=== PATIENT | female | born 1990 | race Caucasian/White ===

== ENCOUNTER 2016-11-24 10:29 | Inpatient (IN) | payer BC ==
[2016-11-24] MEDS ORDERED: OXYTOCIN/DEXTROSE 5%-WATER 30 UNITS/500 ML BAG IV ONE (12:29)
[2016-11-24] MEDS ORDERED: LIDOCAINE HCL 50 ML VIAL PERI PRN (12:29)
[2016-11-24] MEDS ORDERED: MISOPROSTOL 100 MCG TABLET VG PRN (12:29)
[2016-11-24] MEDS: RINGERS SOLUTION,LACTATED 1,000 ML IV PRN ×2 (12:35→21:11)
[2016-11-24 12:52] LABS: Hematocrit 38.7 % (37.0-47.0); Hemoglobin 13.1 gm/dL (12.5-16.0); Mean Cell Volume 88.6 fl (78-100); Mean Corpuscular Hgb Conc 33.9 g/dl (32-36); Mean Platelet Volume 12.7 fl (6.0-9.5); Neutrophil # 12.8 K/mm3 (1.3-6.0); Neutrophil % 79.8 % (42-75.0); Platelet Count 171 K/mm3 (150-450); Red Blood Count 4.37 M/mm3 (4.2-5.4); Red Cell Distribution Width 13.2 % (11.5-14.0)
[2016-11-24 13:06] LABS: Albumin * 2.4 gm/dl (3.4-5.0); Anion Gap 13.9 mmol/L (6.8-13.8); BUN/Creatinine Ratio 19.2 (9.0-21.6); Bilirubin, Total 0.2 mg/dL (0.0-1.1); Ca. Corrected For Albumin 9.9 mg/dL (8.4-10.2); Calcium * 8.9 mg/dL (7.9-10.9); Carbon Dioxide 23.1 mmol/L (24-32.6); Total Protein 6.4 gm/dL (6.2-8.2)
[2016-11-24 13:19] LABS: Cocaine Ur Negative (NEGATIVE); Urine Barbiturate Negative (NEGATIVE); Urine Benzodiazepines Negative (NEGATIVE); Urine Opiates Negative (NEGATIVE); Urine PCP Negative (NEGATIVE); Urine THC Negative (NEGATIVE)
--- NOTE | 2016-11-24 17:21 | PN ---
Subjective - Date and Time Seen Date: 11/24/16 Subjective Narrative: Labor note 26 yo, G1 at 40 weeks with gestational hypertension. induced for non-reactive NST, with BPP 4/8. cervix dilated to 1 cm at admission. GBS negative. pitocin started for induction and now at 6 mu/min. Contractions: q2-3 min. VE: 1.5 cm, 60%, -2 FHR: reassuring, baseline 130s with accels and no decels. Plan: continue pitocin as tolerated. Madeleine Jacques MD Objective - Vitals Vitals: Last Vital Signs Temp 36.1 C L 10/07/15 10:31 Pulse Resp BP 138/87 10/07/15 10:31 Pulse Ox - Abnormal Lab Findings Abnormal Lab Findings: Abnormal Lab Results 11/24/16 11/24/16 Range/Units 12:45 12:45 WBC 16.0 H (4.0-10.5) K/mm3 MPV 12.7 H (6.0-9.5) fl Immature Gran % (Auto) 1.30 H (0.001-0.429) % Immature Gran # (Auto) 0.21 H (0.000-0.0310) K/mm3 Neutrophils % 79.8 H (42-75.0) % Lymphocytes % 13.8 L (20-51) % Neutrophils # 12.8 H (1.3-6.0) K/mm3 Carbon Dioxide 23.1 L (24-32.6) mmol/L Anion Gap 13.9 H (6.8-13.8) mmol/L Est GFR (Non-Af Amer) 153 H (60-130) mL/min Albumin 2.4 L (3.4-5.0) gm/dl
[2016-11-24] MEDS ORDERED: RINGERS SOLUTION,LACTATED 1,000 ML IV ONE (18:04)
[2016-11-24] MEDS ORDERED: fentaNYL CITRATE/PF 50 MCG/ML AMPUL IT SCH (18:45)
--- NOTE | 2016-11-24 18:46 | OR ---
Anesthesia Pre Procedure Eval Date of Service: 11/24/16 Pre Procedure Evaluation: Last Vital Signs Temp 37.3 1840 Pulse 65 1840 Resp 18 1840 BP 174/93 1840 Pulse Ox 98 1840 Anesthesia Pre Procedure Evaluation DATE: 11/24/2015 TIME: 1840 INDICATIONS: Active labor, labor pain PAST MEDICAL HISTORY: Primipara patient in active labor, being induced due to biophysical profile of 4 over. EXAM: Heart regular; lungs clear ASSESSMENT OF MEDICAL STATUS: Hypertensive and nausea and now probably due to increasing pain. Appropriate candidate for labor analgesia. PLANNED PROCEDURE: Labor epidural for labor analgesia Home Medications: HOME MEDICATIONS Vit#96/Ferrous Fum/FA [ S] 1 tab PO DAILY 11/24/16 [Last Taken 11/23/16]
--- NOTE | 2016-11-24 19:09 | OR ---
Anesthesia Procedure Note - Anesthesia Procedure Note Date of Service: 11/24/16 Narrative: Vital Signs - Last Taken Temp 36.1 C L 10/07/15 10:31 Pulse Resp BP 138/87 10/07/15 10:31 Pulse Ox 11/24/16 19:07 ANESTHESIA PROCEDURE NOTE Date of Procedure: 11/24/2016 Time of procedure: 1840. Performed by: MARKIE Ruiz CRNA, MSN Refrigeration Engine Operator: Roshni Villasenor RN. Preprocedure diagnosis: Active labor, labor pain. Post procedure diagnosis: Same. Procedure: Labor Epidural Placement L34. Indications: Labor pain. Findings: See below. Details of the procedure: The patient was placed on the side of the bed in sitting position. The patient was prepped with DuraPrep and draped in a sterile fashion. Lidocaine 1% was infiltrated to the skin and subcutaneous tissues at the level of the L3 4 interspace. The epidural space was identified using a 18-gauge Tuohy needle with [id number] technique. Fentanyl 20 g was given intrathecally the intrathecal needle was then removed and the epidural catheter was threaded approximately 4 cm, the epidural needle was then removed, and after careful aspiration 3 mL of 1.5% lidocaine with 1-200,000 epinephrine was injected without change in maternal heart rate or sensorium. The catheter was then taped in place. EBL: Minimal. Fluids: N/A. Specimen: N/A. Post procedure condition: The patient tolerated the procedure well with good relief. No complications were noted. Thank you for this consultation. Jerson Hernandez CRNA, ARNP, MSN
[2016-11-24] MEDS: BUPIVACAINE HCL/0.9 % NACL/PF 250 ML EP PRN (19:26)
[2016-11-25] MEDS: RINGERS SOLUTION,LACTATED 1,000 ML IV PRN (03:53)
[2016-11-25] MEDS ORDERED: DEXTROSE 5%-LACTATED RINGERS 1,000 ML IV PRN (07:00)
[2016-11-25] MEDS: BUPIVACAINE HCL/0.9 % NACL/PF 250 ML EP PRN (08:40)
--- NOTE | 2016-11-25 08:51 | PN ---
Subjective - Date and Time Seen Date: 11/25/16 Subjective Narrative: Labor note 26 yo, G1 at 40 weeks with gestational hypertension. induced for non-reactive NST, with BPP 4/8. cervix dilated to 1 cm at admission. GBS negative. pitocin started for induction and on pitocin all night. Contractions: q2-3 min. SROM at 0257 with moderate meconium. Patient got a pitocin break from 7 am to 8 am. pitocin restarted at 8:05, and now at 4 mu. Cervix: 5/80/-2 at 02:57 6/90/-1 at 07:00 7/100/-1 at 8:30 FHR: reassuring, 120s with accels. Plan: will continue pitocin as tolerated. Madeleine Jacques MD Objective - Vitals Vitals: Last Vital Signs Temp 36.1 C L 11/24/16 19:18 Pulse 83 11/24/16 19:18 Resp 18 11/24/16 19:18 BP 138/78 11/24/16 19:18 Pulse Ox 98 11/24/16 19:18 - Abnormal Lab Findings Abnormal Lab Findings: Abnormal Lab Results 11/24/16 11/24/16 Range/Units 12:45 12:45 WBC 16.0 H (4.0-10.5) K/mm3 MPV 12.7 H (6.0-9.5) fl Immature Gran % (Auto) 1.30 H (0.001-0.429) % Immature Gran # (Auto) 0.21 H (0.000-0.0310) K/mm3 Neutrophils % 79.8 H (42-75.0) % Lymphocytes % 13.8 L (20-51) % Neutrophils # 12.8 H (1.3-6.0) K/mm3 Carbon Dioxide 23.1 L (24-32.6) mmol/L Anion Gap 13.9 H (6.8-13.8) mmol/L Est GFR (Non-Af Amer) 153 H (60-130) mL/min Albumin 2.4 L (3.4-5.0) gm/dl Cauti Physician Documentation - Urinary Catheter Management Urethral (Rivera) Date of Insertion: 11/24/16 Time of Insertion: 20:00
[2016-11-25] MEDS ORDERED: FLU VACC QS2016-17 36MOS UP/PF 60 MCG/0.5 ML DISP.SYRIN IM ONE ×2 (09:00→13:15)
[2016-11-25] MEDS ORDERED: MISOPROSTOL 200 MCG TABLET RC SCH (11:45)
[2016-11-25] MEDS ORDERED: GLYCERIN/WITCH HAZEL LEAF 40 APPL BOX TP PRN (12:25)
[2016-11-25] MEDS ORDERED: RINGERS SOLUTION,LACTATED 1,000 ML IV PRN (12:25)
[2016-11-25] MEDS ORDERED: diphenhydrAMINE HCL 25 MG CAPSULE PO PRN (12:25)
[2016-11-25] MEDS ORDERED: SENNOSIDES 8.6 MG TABLET PO PRN (12:25)
[2016-11-25] MEDS ORDERED: HYDROCORTISONE 30 APPL TUBE TP PRN (12:25)
[2016-11-25] MEDS ORDERED: BENZOCAINE/MENTHOL 81 SPRAY CAN TP PRN (12:25)
[2016-11-25] MEDS ORDERED: OXYTOCIN/DEXTROSE 5%-WATER 30 UNITS/500 ML BAG IV ONE (12:25)
[2016-11-25] MEDS ORDERED: BISACODYL 10 MG SUPP.RECT RC PRN (12:25)
--- NOTE | 2016-11-25 12:34 | OR ---
Operative Report - Dictated Report Narrative: Spontaneous Vaginal Delivery Note: 26 yo, G1 admitted for induction at 40 weeks due to gestational hypertension and non-reassuring testing with non-reactive NST and BPP of 4/8. Cervix was dilated to 1 cm at admission. GBS was negative. Pitocin started for induction with the aid of a Rivera bulb. Received epidural in labor. SROM at 0257 with moderate meconium and cervix was 5 cm at that time. IUPC placed at 7 cm. Continued on low dose pitocin at 2-4 mu/min with reassuring heart rate. Progressed to complete without complications. Pushed with contractions and descent. Head delivered in OA over the perineum. Nuchal cord x 1 was tight and unable to reduce and delivered through. The anterior shoulder delivered, followed by the posterior shoulder and the rest of the baby without difficulty. Mouth and nose were bulb-suctioned. Cord was clamped, and cut by father of baby. Baby cried while on maternal abdomen for care by the nursing. Cord blood was obtained. Placenta delivered intact with 3 vessel cord. Pitocin drip started after placenta delivered. Fundus was soft and cytotec 800 mcg was placed in rectum. Exam of the perineum, vaginal and cervix revealed a tiny perineum abrasion and no repair needed. Fundus was massaged and firm with minimal bleeding. Mother and baby tolerated the delivery well. EBL 500 ml. Infant: female, 3312 grams, 7 lbs and 4.8 oz. 8/9. Time of delivery: 11: 25. Madeleine Jacques MD History for Definition: * The number of deliveries resulting in a live the patient experienced prior to current hospitalization * The previous delivery of live twins or any live multiple gestation is considered one live event. *If primagravida or nulliparous is documented select zero for the number of previous live births. Live Events: 0
[2016-11-25] MEDS: IBUPROFEN 800 MG TABLET PO PRN (13:35)
[2016-11-25] MEDS: HYDROcodone/ACETAMINOPHEN 1 EACH TABLET PO PRN ×2 (13:37→18:17)
[2016-11-25] MEDS: DOCUSATE SODIUM 100 MG CAPSULE PO SCH (20:37)
[2016-11-26] MEDS: HYDROcodone/ACETAMINOPHEN 1 EACH TABLET PO PRN ×2 (05:16→16:28)
[2016-11-26] MEDS: IBUPROFEN 800 MG TABLET PO PRN ×2 (05:16→16:28)
[2016-11-26 06:45] LABS: Hematocrit 32.9 % (37.0-47.0); Mean Cell Volume 88.9 fl (78-100); Mean Corpuscular Hemoglobin 29.7 pg (27-31); Mean Corpuscular Hgb Conc 33.4 g/dl (32-36); Mean Platelet Volume 12.7 fl (6.0-9.5); Neutrophil # 14.5 K/mm3 (1.3-6.0); Platelet Count 161 K/mm3 (150-450); Red Cell Distribution Width 13.2 % (11.5-14.0); White Blood Count 17.7 K/mm3 (4.0-10.5)
[2016-11-26] MEDS: DOCUSATE SODIUM 100 MG CAPSULE PO SCH ×2 (08:11→20:42)
--- NOTE | 2016-11-26 09:54 | PN ---
Subjective - Date and Time Seen Date: 11/26/16 Subjective Narrative: day 1, s/p doing well. no complaints. . normal lochia. Objective - Vitals Vitals: Last Vital Signs Temp 36.2 C L 11/26/16 08:00 Pulse 68 11/26/16 08:00 Resp 18 11/26/16 08:00 BP 124/67 11/26/16 08:00 Pulse Ox 98 11/26/16 08:00 - Abnormal Lab Findings Abnormal Lab Findings: Abnormal Lab Results 11/26/16 Range/Units 06:40 WBC 17.7 H (4.0-10.5) K/mm3 RBC 3.70 L (4.2-5.4) M/mm3 Hgb 11.0 L (12.5-16.0) gm/dL Hct 32.9 L (37.0-47.0) % MPV 12.7 H (6.0-9.5) fl Immature Gran % (Auto) 0.80 H (0.001-0.429) % Immature Gran # (Auto) 0.15 H (0.000-0.0310) K/mm3 Neutrophils % 82.0 H (42-75.0) % Lymphocytes % 11.2 L (20-51) % Neutrophils # 14.5 H (1.3-6.0) K/mm3 - Exam Constitutional: Present: Alert, Oriented x3, Cooperative Respiratory: Present: no respiratory distress Cardiovascular/Chest: Present: normal peripheral pulses Abdomen: Present: soft, nontender, nondistended, other - fundus firm at umbilicus Extremity: Present: normal range of motion, no calf tenderness, pedal edema - trace Skin Exam: Present: normal color, warm/dry, no cyanosis Eye contact: Present: cooperative, good eye contact, normal speech Cauti Physician Documentation - Urinary Catheter Management Urethral (Rivera) Date of Insertion: 11/24/16 Time of Insertion: 20:00 Date of Removal: 11/25/16 Time of Removal: 11:10 Assessment/Plan Plan Narrative: A: day 1, s/p stable. Plan: routine care. ambulation encouraged. Madeleine Jacques MD
[2016-11-27] MEDS: IBUPROFEN 800 MG TABLET PO PRN ×2 (06:12→12:32)
[2016-11-27] MEDS: HYDROcodone/ACETAMINOPHEN 1 EACH TABLET PO PRN ×2 (06:12→12:32)
[2016-11-27 06:44] VITALS: BP 131/85
--- NOTE | 2016-11-27 16:31 | PN ---
Subjective - Date and Time Seen Date: 11/27/16 Subjective Narrative: day 2, s/p doing well. . normal lochia. Objective - Vitals Vitals: Last Vital Signs Temp 37.0 C 11/27/16 06:36 Pulse 77 11/27/16 06:36 Resp 18 11/27/16 06:36 BP 131/85 11/27/16 06:36 Pulse Ox 98 11/27/16 06:36 - Exam Constitutional: Present: Alert, Oriented x3, Cooperative Respiratory: Present: no respiratory distress Cardiovascular/Chest: Present: normal peripheral pulses Abdomen: Present: soft, nontender, nondistended, other - fundus firm Extremity: Present: normal range of motion, no pedal edema, no calf tenderness Eye contact: Present: cooperative, good eye contact, normal speech Cauti Physician Documentation - Urinary Catheter Management Urethral (Rivera) Date of Insertion: 11/24/16 Time of Insertion: 20:00 Date of Removal: 11/25/16 Time of Removal: 11:10 Assessment/Plan Plan Narrative: A: PPD#2, s/p , doing well and stable. Plan: discharge home today. Madeleine Jacques MD
== END 2016-11-27 14:50 | disposition home or self-care (01) | DRG 775 ==
LOC: RAD 10:29 → OB 12:00
PROVIDERS: ADMIT Obstetrics & Gynecology; ATTEND Obstetrics & Gynecology
PROC: 10E0XZZ Delivery of Products of Conception, External Approach (ICD-10-PCS; principal; 2016-11-25)
PROC: 3E033VJ Introduction of Other Hormone into Peripheral Vein, Percutaneous Approach (ICD-10-PCS; 2016-11-25)
PROC: 4A1HXCZ Monitoring of Products of Conception, Cardiac Rate, External Approach (ICD-10-PCS; 2016-11-25)
PROC: 3E0S3CZ (ICD-10-PCS; 2016-11-25)
DX: O13.4 Gestational [pregnancy-induced] hypertension without significant proteinuria, complicating childbirth (principal); O76 Abnormality in fetal heart rate and rhythm complicating labor and delivery; O69.1XX0 Labor and delivery complicated by cord around neck, with compression, not applicable or unspecified; O77.0 Labor and delivery complicated by meconium in amniotic fluid; Z3A.40 40 weeks gestation of pregnancy; Z37.0 Single live birth

== ENCOUNTER 2018-02-02 09:00 | Inpatient (IN) ==
[2018-02-02 09:25] LABS: Cocaine Ur Negative (NEGATIVE); Urine Barbiturate Negative (NEGATIVE); Urine Benzodiazepines Negative (NEGATIVE); Urine Opiates Negative (NEGATIVE); Urine PCP Negative (NEGATIVE); Urine THC Positive (NEGATIVE)
[2018-02-02] MEDS ORDERED: LIDOCAINE HCL 50 ML VIAL PERI PRN (11:35)
[2018-02-02] MEDS ORDERED: DEXTROSE 5%-LACTATED RINGERS 1,000 ML IV PRN (11:35)
[2018-02-02] MEDS ORDERED: RINGER'S SOLUTION,LACTATED 1,000 ML IV ONE (11:35)
[2018-02-02] MEDS ORDERED: ONDANSETRON HCL/PF 2 MG/ML VIAL IV PRN ×2 (11:35→12:14)
[2018-02-02] MEDS ORDERED: OXYTOCIN/DEXTROSE 5%-WATER 30 UNITS/500 ML BAG IV ONE (12:00)
[2018-02-02 12:01] LABS: Hematocrit 39.3 % (37.0-47.0); Hemoglobin 13.2 gm/dL (12.5-16.0); Mean Cell Volume 88.9 fl (78-100); Mean Corpuscular Hemoglobin 29.9 pg (27-31); Mean Corpuscular Hgb Conc 33.6 g/dl (32-36); Mean Platelet Volume 12.9 fl (6.0-9.5); Neutrophil # 15.3 K/mm3 (1.3-6.0); Neutrophil % 86.5 % (42-75.0); Platelet Count 130 K/mm3 (150-450); Red Blood Count 4.42 M/mm3 (4.2-5.4); Red Cell Distribution Width 13.4 % (11.5-14.0); White Blood Count 17.7 K/mm3 (4.0-10.5)
[2018-02-02 12:14] LABS: Albumin * 2.5 gm/dl (3.4-5.0); Anion Gap 14.7 mmol/L (6.8-13.8); Bilirubin, Total 0.4 mg/dL (0.0-1.1); Ca. Corrected For Albumin 9.4 mg/dL (8.4-10.2); Calcium * 8.5 mg/dL (7.9-10.9); Carbon Dioxide 22.3 mmol/L (24-32.6)
[2018-02-02] MEDS ORDERED: NALOXONE HCL 1 MG/1 ML SYRG IV PRN (12:14)
[2018-02-02] MEDS ORDERED: BUPIVACAINE HCL/PF 30 ML VIAL EP SCH (12:15)
[2018-02-02] MEDS ORDERED: BUPIVACAINE HCL/0.9 % NACL/PF 250 ML EP PRN (12:30)
--- NOTE | 2018-02-02 12:50 | OR ---
Anesthesia Procedure Note - Anesthesia Procedure Note Date of Service: 02/02/18 Narrative: Vital Signs - Last Taken Temp 36.8 C 02/02/18 12:17 Pulse 80 02/02/18 12:17 Resp 20 02/02/18 12:17 BP 141/85 02/02/18 12:17 Pulse Ox 98 02/02/18 12:17 02/02/18 12:49 ANESTHESIA PROCEDURE NOTE Date of Procedure: 02/02/2018. Time of procedure: 1235. Performed by: Wei Paulino CRNA Social Sciences Chair: None. Preprocedure diagnosis: Active labor. Post procedure diagnosis: Same. Procedure: Insertion of labor epidural. Indications: The patient is a 27 -year-old female in active labor requesting labor epidural for pain management. Findings: See below. Details of the procedure: The patient was placed in a sitting position. DuraPrep as well as Betadine swabs X3 was applied to the patient's back. Patient was then draped in a sterile fashion. Lidocaine 1% was infiltrated to the skin and subcutaneous tissues at the level of the L3-4 interspace. The epidural space was identified using a 18-gauge Tuohy needle with loss-of- resistance technique. Epidural catheter was inserted to a depth of 13 centimeters at skin. Negative test dose was elicited using 3 mL of 1.5% preservative-free lidocaine plus epinephrine 1 200,000. The epidural catheter was then taped and secured in place. A loading dose of 8 mL of 0.25% preservative-free bupivacaine was administered to the epidural catheter after negative aspiration for blood and CSF. EBL: Minimal. Fluids: N/A. Specimen: N/A. Post procedure condition: The patient tolerated the procedure well. No complications were noted. Thank you for this consultation. Wei Paulino CRNA
[2018-02-02] MEDS ORDERED: BISACODYL 10 MG SUPP.RECT RC PRN (17:55)
[2018-02-02] MEDS ORDERED: OXYTOCIN/DEXTROSE 5%-WATER 500 UNITS/8,333.33 ML BAG IV ONE (17:55)
[2018-02-02] MEDS ORDERED: SENNOSIDES 8.6 MG TABLET PO PRN (17:55)
[2018-02-02] MEDS ORDERED: diphenhydrAMINE HCL 25 MG CAPSULE PO PRN (17:55)
[2018-02-02] MEDS ORDERED: GLYCERIN/WITCH HAZEL LEAF 40 APPL BOX TP PRN (17:55)
[2018-02-02] MEDS ORDERED: HYDROCORTISONE 30 APPL TUBE TP PRN (17:55)
[2018-02-02] MEDS ORDERED: BENZOCAINE/MENTHOL 81 SPRAY CAN TP PRN (17:55)
--- NOTE | 2018-02-02 17:55 | OR ---
Operative Report - Dictated Report Narrative: Spontaneous Vaginal Delivery Note: 27 yo, CF, at 38.4 weeks, presented today for labor check with regular contractions started 4 am. Dilated to 4 cm in triage. Progressed to 5-6 cm and was admitted for labor at the time. Requested epidural at admission. Progressed to 6 cm upon completion of epidural. Pitocin started for augmentation when progressed to 7 cm with a bulging bag. SROM at 16:35 with light meconium. Progressed to complete without complications. Perineum cleaned with betadine. Pushed with contractions and descent. Head delivered in OA over the perineum. Nuchal cord x 1 reduced at perineum. The anterior shoulder delivered, followed by the posterior shoulder and the rest of the baby without difficulty. Baby cried at perineum. Baby placed on maternal abdomen for drying and care by the nursing. Cord was clamped at one minute of life and cut by the father of baby. Cord blood was obtained. Placenta delivered intact with 3 vessel cord. Pitocin drip started at 20 mu/min after placenta delivered. Exam of the perineum, vaginal and cervix revealed an intact perineum with small right periurethral laceration. No repair needed. Fundus was massaged and firm. Bleeding was moderate. Mother and baby tolerated the delivery well. EBL 200 ml. Infant: male, 3327 grams, 7 lbs and 5.3oz. 9/9. Time of delivery: 17:04. Madeleine Jacques MD History for MU Definition: * The number of deliveries resulting in a live the patient experienced prior to current hospitalization * The previous delivery of live twins or any live multiple gestation is considered one live event. *If primagravida or nulliparous is documented select zero for the number of previous live births. Live Events: 1
[2018-02-02] MEDS: HYDROcodone/ACETAMINOPHEN 1 EACH TABLET PO PRN ×2 (18:47→22:08)
[2018-02-02] MEDS: IBUPROFEN 800 MG TABLET PO PRN (18:47)
[2018-02-02] MEDS: DOCUSATE SODIUM 100 MG CAPSULE PO SCH (22:08)
[2018-02-03] MEDS: IBUPROFEN 800 MG TABLET PO PRN ×4 (01:26→22:53)
[2018-02-03] MEDS: HYDROcodone/ACETAMINOPHEN 1 EACH TABLET PO PRN ×6 (01:26→22:53)
[2018-02-03] MEDS: DOCUSATE SODIUM 100 MG CAPSULE PO SCH ×2 (08:25→22:53)
--- NOTE | 2018-02-03 14:53 | PN ---
Subjective - Date and Time Seen Date: 02/03/18 Subjective Narrative: day 1, s/p doing well with no complaints. . normal lochia. ambulating well. Objective - Vitals Vitals: Last Vital Signs Temp 37.0 C 02/03/18 07:31 Pulse 91 02/03/18 07:31 Resp 18 02/03/18 07:31 BP 122/75 02/03/18 07:31 Pulse Ox 93 02/03/18 07:31 - Exam Constitutional: Present: Alert, Oriented x3, Cooperative Respiratory: Present: no respiratory distress Abdomen: Present: soft, nontender, nondistended, other - fundus firm at umbilicus, non-tender Extremity: Present: normal range of motion, no pedal edema, no calf tenderness Skin Exam: Present: normal color, warm/dry, no cyanosis Appearance: Present: appropriate appearance Eye contact: Present: cooperative, good eye contact, normal speech Cauti Physician Documentation - Urinary Catheter Management Urethral (Rivera) Date of Insertion: 02/02/18 Time of Insertion: 13:00 Date of Removal: 02/02/18 Time of Removal: 17:01 Assessment/Plan Plan Narrative: A: PPD#1, s/p stable and well. Plan: routine care. ambulation encouraged. Madeleine Jacques MD
[2018-02-04] MEDS: HYDROcodone/ACETAMINOPHEN 1 EACH TABLET PO PRN ×3 (02:17→12:31)
[2018-02-04] MEDS: IBUPROFEN 800 MG TABLET PO PRN (07:13)
[2018-02-04] MEDS: DOCUSATE SODIUM 100 MG CAPSULE PO SCH (09:10)
--- NOTE | 2018-02-04 12:42 | PN ---
Subjective - Date and Time Seen Date: 02/04/18 Subjective Narrative: day 2, s/p doing well. . normal lochia. Objective - Vitals Vitals: Last Vital Signs Temp 36.7 C 02/04/18 07:07 Pulse 77 02/04/18 07:07 Resp 20 02/04/18 07:07 BP 126/69 02/04/18 07:07 Pulse Ox 98 02/04/18 07:07 - Exam Constitutional: Present: Alert, Oriented x3, Cooperative Respiratory: Present: no respiratory distress Cardiovascular/Chest: Present: normal peripheral pulses Abdomen: Present: soft, nontender, nondistended, other - fundus below umbilicus and non-tender Extremity: Present: normal range of motion, no pedal edema, no calf tenderness Skin Exam: Present: normal color, warm/dry, no cyanosis Appearance: Present: appropriate appearance Eye contact: Present: cooperative, good eye contact, normal speech Cauti Physician Documentation - Urinary Catheter Management Urethral (Rivera) Date of Insertion: 02/02/18 Time of Insertion: 13:00 Date of Removal: 02/02/18 Time of Removal: 17:01 Assessment/Plan Plan Narrative: A: PPD#2, s/p , stable and well. Plan: will discharge home today. Madeleine Jacques MD
[2018-02-04 12:43] VITALS: BP 140/87
== END 2018-02-04 12:45 | disposition home or self-care (01) | DRG 775 ==
LOC: OBCLINIC 09:00 → OB 11:39
PROVIDERS: ADMIT Obstetrics & Gynecology; ATTEND Obstetrics & Gynecology
DX: F17.210 Nicotine dependence, cigarettes, uncomplicated; O99.324 Drug use complicating childbirth; D69.6 Thrombocytopenia, unspecified; O99.334 Smoking (tobacco) complicating childbirth; F12.90 Cannabis use, unspecified, uncomplicated; Z88.0 Allergy status to penicillin; O69.81X0 Labor and delivery complicated by cord around neck, without compression, not applicable or unspecified; O71.82 Other specified trauma to perineum and vulva; Z3A.39 39 weeks gestation of pregnancy; O99.12 Other diseases of the blood and blood-forming organs and certain disorders involving the immune mechanism complicating childbirth; Z37.0 Single live birth
CPT/HCPCS: 36415; 59025; 80053; 80307; 85025; 86850; 86900; 88307; G0479